=== PATIENT | female | born 1935 | race Caucasian/White ===

== ENCOUNTER 2017-04-03 13:57 | Outpatient (CLI) | payer OTHER | END 2017-04-03 13:58 | disposition home or self-care (01) | DX: M16.0 Bilateral primary osteoarthritis of hip (principal) ==

== ENCOUNTER 2017-09-05 10:38 | Outpatient (CLI) | payer OTHER | END 2017-09-05 10:39 | disposition home or self-care (01) | LOC: SC 10:38 | PROVIDERS: ATTEND Internal Medicine Pulmonary Disease | DX: R09.89 Other specified symptoms and signs involving the circulatory and respiratory systems (principal); G47.9 Sleep disorder, unspecified; G47.10 Hypersomnia, unspecified | CPT/HCPCS: 99203; 99212 ==

== ENCOUNTER 2017-09-13 10:50 | Outpatient (CLI) | payer OTHER | END 2017-09-13 10:51 | disposition home or self-care (01) | LOC: DI 10:50 | PROVIDERS: ATTEND Physician Assistant | DX: R01.1 Cardiac murmur, unspecified (principal); I51.7 Cardiomegaly | CPT/HCPCS: 93306 ==

== ENCOUNTER 2017-10-19 13:00 | Outpatient (CLI) | payer OTHER | END 2017-10-19 13:01 | disposition home or self-care (01) | LOC: SC 13:00 | PROVIDERS: ATTEND Specialist | DX: R06.00 Dyspnea, unspecified (principal) | CPT/HCPCS: 99212; 99214 ==

== ENCOUNTER 2017-10-30 19:58 | Outpatient (CLI) | payer OTHER | END 2017-10-30 19:59 | disposition home or self-care (01) | LOC: SC 19:58 | PROVIDERS: ATTEND Internal Medicine Pulmonary Disease | DX: G47.61 Periodic limb movement disorder (principal) | CPT/HCPCS: 95810 ==

== ENCOUNTER 2017-12-06 13:56 | Outpatient (CLI) | payer OTHER | END 2017-12-06 13:57 | disposition home or self-care (01) | LOC: SC 13:56 | PROVIDERS: ATTEND Nurse Practitioner Family | DX: R06.83 Snoring (principal); G47.61 Periodic limb movement disorder | CPT/HCPCS: 99212; 99214 ==

== ENCOUNTER 2018-02-02 20:32 | Outpatient (CLI) | payer OTHER | END 2018-02-02 20:33 | disposition home or self-care (01) | LOC: SC 20:32 | PROVIDERS: ATTEND Internal Medicine Pulmonary Disease | DX: G47.33 Obstructive sleep apnea (adult) (pediatric) (principal); G47.61 Periodic limb movement disorder | CPT/HCPCS: 95810 ==

== ENCOUNTER 2018-02-08 13:13 | Outpatient (CLI) | payer OTHER | END 2018-02-08 13:14 | disposition home or self-care (01) | LOC: SC 13:13 | PROVIDERS: ATTEND Nurse Practitioner Family | DX: G47.33 Obstructive sleep apnea (adult) (pediatric) (principal); G47.61 Periodic limb movement disorder | CPT/HCPCS: 99212; 99214 ==

== ENCOUNTER 2018-04-12 09:07 | Outpatient (CLI) | payer OTHER | END 2018-04-12 09:08 | disposition home or self-care (01) | LOC: SC 09:07 | PROVIDERS: ATTEND Nurse Practitioner Family | DX: G47.33 Obstructive sleep apnea (adult) (pediatric) (principal) | CPT/HCPCS: 99212; 99214 ==

== ENCOUNTER 2018-07-20 17:58 | Outpatient (CLI) | payer OTHER | END 2018-07-20 17:59 | disposition home or self-care (01) | LOC: LAB 17:58 | PROVIDERS: ATTEND Physician Assistant | DX: E87.5 Hyperkalemia (principal) | CPT/HCPCS: 36415; 82728; 84132 ==

== ENCOUNTER 2018-07-30 10:08 | Outpatient (CLI) | payer OTHER ==
[2018-07-30 20:01] LABS: % IRON SATURATION 13 % (20-50); IRON 59 ug/dL (28-170); TOTAL IRON BINDING CAPACITY 466 ug/dL (250-450); TRANSFERRIN 333 mg/dL (192-382)
== END 2018-07-30 10:09 | disposition home or self-care (01) ==
LOC: LAB.F 10:08
PROVIDERS: ATTEND Physician Assistant
DX: D64.9 Anemia, unspecified (principal)
CPT/HCPCS: 36415; 83540; 84466

== ENCOUNTER 2019-06-18 14:43 | Outpatient (CLI) | payer OTHER | END 2019-06-18 14:44 | disposition home or self-care (01) | LOC: DI 14:43 | PROVIDERS: ATTEND Physician Assistant | DX: Z78.0 Asymptomatic menopausal state (principal) | CPT/HCPCS: 77080; 77081 ==

== ENCOUNTER 2020-06-23 12:47 | Outpatient (CLI) | payer OTHER | END 2020-06-23 12:48 | disposition home or self-care (01) | LOC: DI 12:47 | PROVIDERS: ATTEND Registered Nurse | DX: I51.7 Cardiomegaly (principal) | CPT/HCPCS: 93306 ==

== ENCOUNTER 2021-05-25 07:06 | Outpatient (CLI) | payer OTHER ==
[2021-05-25 17:23] LABS: THYROID STIMULATING HORMONE 0.69 uIU/mL (0.34-5.60)
[2021-05-25 17:33] LABS: ESTIMATED AVERAGE GLUCOSE 120 mg/dL (70-100); HEMOGLOBIN A1c% 5.8 % (4.27-6.07)
[2021-05-25 17:35] LABS: ALBUMIN 3.4 g/dL (3.2-5.5); ALBUMIN/GLOBULIN RATIO 1.1 (1.0-2.2); BILIRUBIN,TOTAL 0.6 mg/dL (0.2-1.0); CALCIUM 9.1 mg/dL (8.5-10.3); POTASSIUM 4.1 mmol/L (3.5-5.0); TOTAL PROTEIN 6.5 g/dL (6.7-8.2)
== END 2021-05-25 07:07 | disposition home or self-care (01) ==
LOC: LAB.S 07:06
PROVIDERS: ATTEND Nurse Practitioner Family
DX: L98.9 Disorder of the skin and subcutaneous tissue, unspecified (principal); E03.9 Hypothyroidism, unspecified; R73.03 Prediabetes; E55.9 Vitamin D deficiency, unspecified; N18.30 Chronic kidney disease, stage 3 unspecified
CPT/HCPCS: 36415; 80053; 82306; 83036; 84443

== ENCOUNTER 2021-06-11 14:18 | Emergency (ER) | payer OTHER ==
[2021-06-11 14:33] VITALS: BP 144/72
[2021-06-11] MEDS ORDERED: BACITRACIN ZINC OINT 1 PACKET TOP STA (14:39)
--- NOTE | 2021-06-11 14:52 | ED Physician Documentation ---
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 No fevers. She is not on any antibiotics. She otherwise feels well. Secondary to the pain she feels like her hand is stiff and does not work as well as it should. She has no focal neuro deficits. No slurred speech facial droop arm or leg weakness. Review of Systems Constitutional: reports: Reviewed and negative Nose: reports: Reviewed and negative Throat: reports: Reviewed and negative Cardiac: reports: Reviewed and negative Respiratory: reports: Reviewed and negative GI: reports: Reviewed and negative Skin: reports: Other (Surgical incision/biopsy site left forearm) Musculoskeletal: reports: Reviewed and negative PD PAST MEDICAL HISTORY - Past Medical History Cardiovascular: Hypertension Respiratory: None Endocrine/Autoimmune: None GI: None : None HEENT: None Psych: None Musculoskeletal: None Derm: None - Past Surgical History General: Appendectomy Ortho: Other HEENT: Cataracts - Present Medications Home Medications: Ambulatory Orders Medication Instructions Recorded Confirmed Levothyroxine Sodium 1 tab PO DAILY 06/11/21 06/11/21 Losartan Potassium 1 tab PO DAILY 06/11/21 06/11/21 cephALEXin [Keflex] 500 mg PO Q8H #15 06/11/21 - Allergies Allergies/Adverse Reactions: Allergies Allergy/AdvReac Type Severity Reaction Status Date / Time No Known Drug Allergies Allergy Verified 06/11/21 14:27 PD ED PE EXPANDED - General General: Alert, No acute distress - Extremities Extremities: Left forearm (4 cm surgical incision at the site of the squamous cell resection is well approximated with a running suture. On the radial side of the incision there is moderate amount of erythema and induration with tenderness. Some milky purulent drainage is noted on the bandage.) Results - Vitals Vitals: Vital Signs - 24 hr 06/11/21 14:27 Temperature 36.7 C Heart Rate 90 Respiratory 18 Rate Blood Pressure 144/72 H O2 Saturation 97 Oxygen O2 Source Room air PD MEDICAL DECISION MAKING - ED course Complexity details: reviewed results, re-evaluated patient, d/w patient, d/w family ED course: 85-year-old female presents the emergency department for evaluation of increased pain and redness around the surgical excision/incision/biopsy site completed 3 days ago for resection of a squamous cell carcinoma. There is noted moderate erythema with some purulent drainage on the bandages consistent with an early cellulitis. A Wound culture was obtained. We will place her empirically on cephalexin and tailor antibiotic coverage as appropriate. Patient is to continue follow-up with her primary care doctor in about 1 week for suture removal. Emergent return precautions were discussed for worsening symptoms. Departure - Departure Disposition: Home, Self Care Clinical Impression: Cellulitis of forearm, left Condition: Stable Record reviewed to determine appropriate education?: Yes Instructions: ED Cellulitis Ch Prescriptions: cephALEXin [Keflex] 500 mg PO Q8H #15 Comments: The incision around her biopsy is inflamed and red. There was some milky drainage which makes me concerned that she may have a mild infection or cellulitis. Please fill the prescription for the cephalexin and give to her 3 times daily for the next 5 days. A gentle warm compress can also help relieve the pain. I recommend that you wash gently with warm soap and water pat dry apply thin layer of antibiotic ointment over the surgical incision and then apply the bandage as shown in the emergency department. If at any point you have concerns of increasing redness or pain despite the antibiotics please return to the emergency department for a second evaluation.
== END 2021-06-11 15:10 | disposition home or self-care (01) ==
LOC: ED 14:18
DX: L03.114 Cellulitis of left upper limb (principal); G89.18 Other acute postprocedural pain; I10 Essential (primary) hypertension
CPT/HCPCS: 87070; 87077; 87181; 87205; 99281; 99283; A9270